=== PATIENT | male | born 1950 | race Caucasian/White ===

== ENCOUNTER 2022-02-17 13:07 | Outpatient (CLI) | payer OTHER, SELFPAY ==
[2022-02-17 15:20] LABS: Albumin* 4.2 g/dL (3.3-5.0)
[2022-02-17 15:21] LABS: Chloride* 105 mmol/L (96-114); Potassium* 4.6 mmol/L (3.6-5.1); Sodium* 141 mmol/L (135-149)
[2022-02-17 15:23] LABS: Aspartate Amino Transferase* 20 U/L (12-35); Bilirubin Total* 0.5 mg/dL (0.1-1.5); Carbon Dioxide* 32 mmol/L (20-32); Cholesterol* 225 mg/dL (90-199); Creatinine* 0.9 mg/dL (0.5-1.5); Estimated Glomerular Filt Rate 91 ml/min
[2022-02-17 15:24] LABS: Alanine Aminotransferase* 22 U/L (4-50); Alkaline Phosphatase* 83 U/L (40-150); Blood Urea Nitrogen* 23 mg/dL (7-30); Glucose* 93 mg/dL (60-115); Total Protein* 6.9 g/dL (6.0-8.3)
[2022-02-17 15:25] LABS: Calcium* 9.8 mg/dL (8.4-10.6); HDL Cholesterol* 80 mg/dL (>=40); LDL Cholesterol Calculated 99 mg/dL (<100); Triglycerides* 229 mg/dL (40-149)
== END 2022-02-17 13:08 | disposition home or self-care (01) ==
LOC: NFLDREF 13:08
PROVIDERS: PCP Internal Medicine; Visit Provider Internal Medicine
DX: I10 Essential (primary) hypertension (principal); F32.A Depression, unspecified; F41.9 Anxiety disorder, unspecified; G43.909 Migraine, unspecified, not intractable, without status migrainosus; G62.9 Polyneuropathy, unspecified; N52.9 Male erectile dysfunction, unspecified; R21 Rash and other nonspecific skin eruption; Z12.5 Encounter for screening for malignant neoplasm of prostate; Z13.6 Encounter for screening for cardiovascular disorders
CPT/HCPCS: 80053; 80061; 84153

== ENCOUNTER 2022-05-30 10:35 | Outpatient (CLI) | payer OTHER, SELFPAY ==
[2022-05-30 12:49] LABS: Albumin* 3.6 g/dL (3.3-5.0); Chloride* 106 mmol/L (96-114)
[2022-05-30 12:50] LABS: Potassium* 4.6 mmol/L (3.6-5.1); Sodium* 137 mmol/L (135-149)
[2022-05-30 12:52] LABS: Alanine Aminotransferase* 19 U/L (4-50); Alkaline Phosphatase* 61 U/L (40-150); Aspartate Amino Transferase* 20 U/L (12-35); Bilirubin Total* 0.4 mg/dL (0.1-1.5); Blood Urea Nitrogen* 34 mg/dL (7-30); Carbon Dioxide* 27 mmol/L (20-32); Creatinine* 1.1 mg/dL (0.5-1.5); Estimated Glomerular Filt Rate 71 ml/min; Glucose* 104 mg/dL (60-115); Total Protein* 6.5 g/dL (6.0-8.3)
== END 2022-05-30 10:36 | disposition home or self-care (01) ==
LOC: NFLDREF 10:35
PROVIDERS: PCP Internal Medicine; Visit Provider Internal Medicine
DX: G70.00 Myasthenia gravis without (acute) exacerbation (principal)
CPT/HCPCS: 80053

== ENCOUNTER 2023-04-18 13:06 | Outpatient (CLI) | payer OTHER, SELFPAY | END 2023-04-18 13:07 | disposition home or self-care (01) | PROVIDERS: PCP Internal Medicine; Visit Provider Internal Medicine | DX: N52.9 Male erectile dysfunction, unspecified (principal); I10 Essential (primary) hypertension; Z13.220 Encounter for screening for lipoid disorders | CPT/HCPCS: 80053; 80061; G0103 ==

== ENCOUNTER 2024-07-09 13:34 | Outpatient (CLI) | payer OTHER, SELFPAY | END 2024-07-09 13:35 | disposition home or self-care (01) | PROVIDERS: PCP Internal Medicine; Visit Provider Internal Medicine | DX: I10 Essential (primary) hypertension (principal); E11.9 Type 2 diabetes mellitus without complications; G62.9 Polyneuropathy, unspecified; G70.00 Myasthenia gravis without (acute) exacerbation | CPT/HCPCS: 80048; 82607; 84207 ==

== ENCOUNTER 2024-09-11 13:06 | Outpatient (CLI) | payer OTHER, SELFPAY | END 2024-09-11 13:07 | disposition home or self-care (01) | LOC: NFLDREF 13:07 | PROVIDERS: PCP Internal Medicine; Visit Provider Internal Medicine | DX: E11.65 Type 2 diabetes mellitus with hyperglycemia (principal); Z79.84 Long term (current) use of oral hypoglycemic drugs | CPT/HCPCS: 80048 ==